=== PATIENT | female | born 1970 | race African-American/Black ===

== ENCOUNTER 2025-04-01 09:14 | Emergency (ER) | payer OTHER, SELFPAY ==
[2025-04-01 09:37] VITALS: BP 119/62; PULSE 92; RESP 20; TEMP 36.6; O2SAT 100
--- OUTSIDE RECORDS SUMMARY | 2025-04-01 09:42 | XMS_ITS | Clinical Summary ---
Author Organization [facility] Address [address] [place] [address] Care Team Providers Care Billet Checker Name Role Phone Bob Araujo MD Primary Care Provider [phone] Allergies Active Allergy Reactions Criticality Noted Date Comments Penicillins Rash,Swelling Low 04/28/2017 Medications hydrochlorothia zide 25 MG tablet Take 25 mg by mouth every morning. Active lisinopril 20 MG tablet Take 20 mg by mouth daily. Active Cholecalciferol (VITAMIN D) 1000 UNIT tablet Take 1,000 Units by mouth daily. Active potassium chloride 20 MEQ packet Take 20 mEq by mouth 2 (two) times daily. Active MetFORMIN ER, OSM, 1000 MG TABLET SR 24 HR 24 hr tablet Take 1,000 mg by mouth every morning before breakfast. Active glipiZIDE Tab Take 2.5 mg by mouth every morning before breakfast. Active fluticasone propionate (FLONASE) 50 MCG/ACT nasal spray 1 spray by Each Nare route 2 (two) times a day. 16 g 04/28/2017 Active Guaifenesin-Cod eine 100-10 MG/5ML Syrup Take 10 mLs by mouth every 6 (six) hours as needed (cough). 150 mL 04/28/2017 Active guaiFENesin-Cod eine (ROBITUSSIN AC SUGAR FREE 10-100 MG/5ML OR SYRP)Indication s:Cough Take 10 mLs by mouth every 4 (four) hours as needed. Indications: Cough 200 mL 07/01/2020 Active Family History Medical History Relation Comments Hypertension Father Diabetes Mother Hypertension Mother Relation Status Comments Father Mother Social History Tobacco Use Types Packs/Day Years Used Date Smoking Tobacco: Never Smokeless Tobacco: Never Alcohol Use Standard Drinks/Week Comments No 0 (1 standard drink = 0.6 oz pur e alcohol) Comments No Sex and Gender Information Value Date Recorded Sex Assigned at Female 08/22/2024 9:56 AM CDT Legal Sex Female 5:50 PM CDT Gender Identity Not on file Sexual Orientation Not on file Last Filed Vital Signs Vital Sign Reading Time Taken Comments Blood Pressure 175/79 07/09/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 Pulse 100 07/09/2021 2:26 PM FISHERMAN HELPER Temperature 36.8 C (98.2 F) 07/09/2021 2:26 PM FISHERMAN HELPER Respiratory Rate 18 07/09/2021 2:26 PM FISHERMAN HELPER Oxygen Saturation 98% 07/09/2021 2:26 PM FISHERMAN HELPER Inhaled Oxygen Concentration - - Weight 122.5 kg (270 lb) 07/09/2021 2:26 PM FISHERMAN HELPER Height 167.6 cm (5' 6) 07/09/2021 2:26 PM FISHERMAN HELPER Body Mass Index 43.58 07/09/2021 2:26 PM FISHERMAN HELPER Plan of Treatment Health Maintenance Due Date Last Done Comments Cervical Cancer Screening Pa p Smear (Age 30 to 64) Every 3 Years 1969 Colorectal Cancer Screening Colonoscopy (10 Years) 1969 Annual Physical 1972 Hepatitis C 12/25/1987 DTaP, Tdap and Td Vaccines ( 1 - Tdap) 1988 Hepatitis B Vaccines (1 of 3 - 19+ 3-dose series) 1988 Cervical Cancer Screening Pa p with HPV Testing (Age 30 to 64) Every 5 Years 12/25/1999 Cervical Cancer Screening with HPV 12/25/1999 Mammogram Screening 2009 Pneumococcal Vaccine: 50+ Ye ars (1 of 1 - PCV) 12/25/2019 Zoster Vaccines (1 of 2) 12/25/2019 COVID-19 Vaccine ( - 2023-2 5 season) 2025 Influenza Adult (#1) 2025 Meningococcal B Vaccine Aged Out No l onger eligible based on patient's age to complete this topic Meningococcal Vaccine Aged Out No jana henrik eligible based on patient's age to complete this topic RSV Immunizations Under 20 Months Aged Out No longer eligible based on patient's age to complete this topic Care Teams Billet Checker Relationship Specialty Start Date End Date Araujo, Bob, MD [address] [facility] [address] [place] [address] PCP - General INTERNAL MEDICINE 07/09/21
--- OUTSIDE RECORDS SUMMARY | 2025-04-01 09:42 | XMS_ITS | Clinical Summary ---
Author Organization [facility] Address [address] [place] [address] Care Team Providers Care Hospice Spiritual Care Coordinator Name Role Phone Jeannie Cardona MD Primary Care Provider [phone] Allergies Active Allergy Reactions Criticality Noted Date Comments Penicillins Swelling,Other (See comments) Medium 11/20/2023 Throat closed up Medications ibuprofen (ADVIL,MOTRIN) 800 mg tablet Take 1 tablet (800 mg total) by mouth 2 (two) times a day as needed Active ferrous sulfate 325 mg (65 mg of elemental iron) tablet Take 1 tablet (325 mg total) by mouth daily with breakfast 4 Active potassium chloride ER 20 mEq CR tablet Take 1 tablet (20 mEq total) by mouth daily Active glimepiride (AMARYL) 4 mg tablet Take 1 tablet (4 mg total) by mouth daily Active lisinopril-hydroCH LOROthiazide (ZESTORETIC) 20-25 mg per tablet Take 1 tablet by mouth daily Active Trulicity 4.5 mg/0.5 mL pen injector Inject 0.5 mL (4.5 mg total) under the skin once a week 4 Active atorvastatin (LIPITOR) 10 mg tablet Take 1 tablet (10 mg total) by mouth daily Active traZODone (DESYREL) 50 mg tablet Take 1 tablet (50 mg total) by mouth nightly as needed for sleep Active ibuprofen (ADVIL,MOTRIN) 800 mg tablet Take 1 tablet (800 mg total) by mouth 3 (three) times a day 21 tablet 4 Active cyclobenzaprine (FLEXERIL) 10 mg tablet Take 1 tablet (10 mg total) by mouth 2 (two) times a day as needed for muscle spasms 20 tablet 4 Active ondansetron ODT (ZOFRAN-ODT) 4 mg disintegrating tablet Take 1 tablet (4 mg total) by mouth every 8 (eight) hours as needed for nausea or vomiting 20 tablet 5 Active dicyclomine (BENTYL) 20 mg tablet Take 1 tablet (20 mg total) by mouth 2 (two) times a day 10 tablet 5 Active Active Problems Problem Noted Date Diagnosed Date Screening for colon cancer 11/17/2023 Encounter for screening colonoscopy 10/22/2023 Immunizations Immunization Administration Dates Next Due Influenza, Unspecified 02/14/2022(Deferred: Anayeli ent decision) Surgical History Surgery Date Site/Laterality Comments SECTION x3 Medical History Medical History Date Comments Hypertension Hyperlipidemia Type 2 diabetes mellitus Arthritis Social History Tobacco Use Types Packs/Day Years Used Date Smoking Tobacco: Never Smokeless Tobacco: Never Tobacco Cessation:Counseling Given: Not Answered AUDIT-C Answer Date Recorded Q1: How often do you have a drink containing alcohol? Never 11/26/2023 Q2: How many drinks containi ng alcohol do you have on a typical day when you are drinking? Patient does not drink 4 Q3: How often do you have si x or more drinks on one occasion? Never 11/26/2023 Personal Safety Answer Date Recorded Have you ever been in or are you currently in a harmful physical or emotional relationship or is someone making you feel afraid or unsafe? 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 Gender Identity Not on file Sexual Orientation Not on file Obstetrics History Last Filed Vital Signs Vital Sign Reading Time Taken Comments Blood Pressure 141/79 08/22/2024 1:30 PM CDT Pulse 95 08/22/2024 1:30 PM CDT Temperature 37.2 C (99 F) 08/22/2024 12:15 PM CDT Respiratory Rate 11 08/22/2024 1:30 PM CDT Oxygen Saturation 100% 08/22/2024 1:00 PM CDT Inhaled Oxygen Concentration - - Weight 121 kg (266 lb 12.1 oz) 01/30/2024 2:55 P M CDT Height 167.6 cm (5' 6) 01/30/2024 2:55 PM CDT Body Mass Index 43.06 01/30/2024 2:55 PM CDT Plan of Treatment Health Maintenance Due Date Last Done Comments Breast Cancer Screening-Mammogram 1969 Cervical Cancer Screening 1969 Depression Screening 1969 Hepatitis C Screening 1969 DTaP/Tdap/Td Vaccine (1 - Tdap) 1980 Hepatitis B Screening 12/25/1987 Regular Well Visit/Exam 18-64 12/25/1987 Zoster Vaccine (1 of 2) 12/25/2019 Influenza Vaccine (#1) 2025 Colon Cancer Screening-Colonoscopy 11/25/20282023 Pneumococcal vaccine <65 Aged Out No longer eligible based on patient's age to complete this topic Procedures Procedure Name Priority Date/Time Associated Diagnosis Comments COLONOSCOPY 11/26/2023 8:09 AM CDT from Last 3 Months or Most Recently Relevant to Health Maintenance Results * Colonoscopy (11/26/2023 8:09 AM CDT) Anatomical Region Laterality Modality Other Narrative Procedure Note Nirmal Wright MD - 11/26/2023 8:09 AM CDT [facility] GI ENDOSCOPY Patient Name: Spring Ordaz Procedure Date: 11/26/2023 8:09 AM Date of : 1970 Admit Type: Outpatient Age: 52 Gender: Female Attending MD: Nirmal Wright M.D. Room: [facility] ENDOSCOPY ROOM 06 Note Status: Finalized Procedure: Colonoscopy Indications: Screening for colorectal malignant neoplasm, Family history of colon cancer Referring MD: Jeannie Cardona M.D. Providers: Nirmal Wright M.D. Medicines: Monitored Anesthesia Care Complications: No immediate complications. Estimated Blood Loss: Estimated blood loss: none. Procedure: Pre-Anesthesia Assessment: - Prior to the procedure, a History and Physicalwas performed, and patient medications and allergieswere reviewed. The risks and benefits of the procedureand the sedation options and risks were discussed withthe patient. All questions were answered and informed consent was obtained. Patient identification and proposed procedure were verified. After reviewingthe risks and benefits, the patient was deemed in satisfactory condition to undergo the procedure.The anesthesia plan was to use monitored anesthesiacare (MAC). Immediately prior to administration of medications, the patient was re-assessed foradequacy to receive sedatives. The heart rate, respiratory rate, oxygen saturations, blood pressure, adequacyof pulmonary ventilation, and response to care were monitored throughout the procedure. The physical status of the patient was re-assessed after the procedure. The benefits, risks and alternatives of theprocedure and sedation were discussed and informed consentwas obtained. All questions were answered. Please referto the signed informed consent document in the medical record. The scope was passed under direct vision.The [id number]-[id number] colonoscope was introduced through theanus and advanced to the cecum, identified byappendiceal orifice and ileocecal valve. The colonoscopy was performed without difficulty. The patient tolerated the procedure well. The quality of the bowel preparation was adequate. Scope withdrawal time was13 minutes. Prep was administered in a split dose. Findings: The perianal and digital rectal examinations were normal. Many large-mouthed diverticula were found in the entire colon. Non-bleeding internal hemorrhoids were found during retroflexion. The hemorrhoids were small. The exam was otherwise without abnormality. A localized area of thickened folds of the mucosa was found at the hepatic flexure, possible lipoma. Biopsies were taken with a cold forceps for histology. Impression: - Diverticulosis in the entire examined colon. - Non-bleeding internal hemorrhoids. - The examination was otherwise normal. - Thickened folds of the mucosa at the hepatic flexure, possible lipoma. Biopsied. Recommendation: - Patient has a contact number available for emergencies. The signs and symptoms of potential delayed complications were discussed with thepatient. Return to normal activities tomorrow. Written discharge instructions were provided to thepatient. - High fiber diet. - Continue present medications. - Await pathology results. - Repeat colonoscopy in 5 years for surveillancedue to family history of colon cancer. Nirmal Wright M.D. Nirmal Wright M.D. 11/26/2023 8:36:30 AM . Number of Addenda: 0 Note Initiated On: 11/26/2023 8:09 AM Recognized by the [place] [employer] for promoting quality in endoscopy Nirmal Wright MD ENDOSCOPY PROCEDURES Final Resul t from Last 3 Months or Most Recently Relevant to Health Maintenance Insurance [facility] [address] [address] [place] [address] Care Teams Hospice Spiritual Care Coordinator Relationship Specialty Start Date End Date Jeannie Cardona MD [address] [place] [address] PCP - General Internal Medicine 11/12/23
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
== END 2025-04-01 09:58 | disposition home or self-care (01) ==
PROVIDERS: Emergency Provider Nurse Practitioner; PCP Internal Medicine
DX: S40.012A Contusion of left shoulder, initial encounter (principal); Y04.2XXA Assault by strike against or bumped into by another person, initial encounter; S46.812A Strain of other muscles, fascia and tendons at shoulder and upper arm level, left arm, initial encounter; Y99.0 Civilian activity done for income or pay; E11.9 Type 2 diabetes mellitus without complications; Z79.84 Long term (current) use of oral hypoglycemic drugs
CPT/HCPCS: 99203; G0463